=== PATIENT | female | born 1940 | race Caucasian/White ===

== ENCOUNTER 2016-06-23 05:21 | Inpatient (IN) | payer OTHER ==
[~2016-06-23] VITALS: Ht 160 cm; Wt 89.9 kg
[~2016-06-23 05:21] MED LIST: ALTACE10 MG PO; AMARYL2 MG PO; BIOTIN 5000MCG PO; DAILY VALUE1 EACH PO; GLUCOPHAGE1000 MG PO; IRON325 M1 PO; LO-DOSE ASPIRIN81 M2 PO; LOPRESSOR25 MG PO; MACRODANTIN50 M1 PO; PRAVACHOL10 MG PO; PROSOM1 MG PO; VITAMIN D2000 UNIT PO
[2016-06-23] MEDS ORDERED: ESTRADIOL1 MG PO (06:11)
[2016-06-23] MEDS ORDERED: CALCIUM 500 MG1 EAC2 PO (06:13)
[2016-06-23 06:16] VITALS: BP 168/70
[2016-06-23 06:22] LABS: POINT-OF-CARE METER ID UU14174212
[2016-06-23 10:31] LABS: POINT-OF-CARE METER ID UU13113675
[2016-06-23 11:19] VITALS: BP 153/70
[2016-06-23 15:44] VITALS: BP 153/84
[2016-06-23 20:15] VITALS: BP 127/64
[2016-06-23 23:55] VITALS: BP 93/55
[2016-06-24 03:50] VITALS: BP 93/55
[2016-06-24 06:13] LABS: HEMATOCRIT 33.1 % (36.0-46.0); MCV 96.8 FL (83-99)
[2016-06-24 06:44] LABS: POINT-OF-CARE METER ID UU14188577
[2016-06-24 07:51] VITALS: BP 130/66
[2016-06-24] MEDS ORDERED: BENADRYL25 MG PO (09:45)
[2016-06-24] MEDS ORDERED: ENDOCET 5-3251 EACH PO (09:49)
== END 2016-06-24 10:57 | disposition home or self-care (01) | DRG 483 ==
LOC: 2SOUTH 05:21 → 3EAST 10:40
PROVIDERS: Orthopaedic Surgery
PROC: 0RRK00Z Replacement of Left Shoulder Joint with Reverse Ball and Socket Synthetic Substitute, Open Approach (ICD-10-PCS; principal; 2016-06-23)
DX: M19.012 Primary osteoarthritis, left shoulder (principal); M75.122 Complete rotator cuff tear or rupture of left shoulder, not specified as traumatic; I10 Essential (primary) hypertension; E11.9 Type 2 diabetes mellitus without complications; J45.909 Unspecified asthma, uncomplicated; Z86.718 Personal history of other venous thrombosis and embolism; Z98.84 Bariatric surgery status; Z96.652 Presence of left artificial knee joint
CPT/HCPCS: 73020; 82948; 85014; 85018; J0131; J0330; J0690; J1100; J1170; J1815; J2250; J2405; J2550; J2795; J7030; J7050